=== PATIENT | male | born 1950 | race American Indian/Alaskan Native ===

== ENCOUNTER 2020-10-30 02:16 | Inpatient (IN) | payer MEDICARE ==
[2020-10-30] MEDS ORDERED: ASPIRIN 325 MG TAB PO ONE (02:30)
[2020-10-30 03:07] LABS: Basophils % (Auto) 0.7 % (0.0-1.8); Eosinophils # (Auto) 0.1 K/mm3 (0.0-0.4); Eosinophils % (Auto) 0.9 % (0.0-4.3); Hematocrit 38.5 % (35.5-45.6); Lymphocytes % (Auto) 13.5 % (13.4-35.0); Mean Corpuscular HGB Conc 34 % (32-34); Mean Corpuscular Volume 96 fl (84-94); Monocytes # (Auto) 0.7 K/mm3 (0.0-0.8); Monocytes % (Auto) 9.8 % (0.0-7.3); Platelet Count 174 K/mm3 (140-440); Red Blood Count 4.03 M/mm3 (3.65-5.03); Red Cell Distribution Width 14.3 % (13.2-15.2)
[2020-10-30 03:17] LABS: INR 1.02 (0.87-1.13)
[2020-10-30 03:28] LABS: Alanine Aminotransferase 49 units/L (7-56); Albumin 4.3 g/dL (3.9-5); BUN/Creatinine Ratio 19; Blood Urea Nitrogen 15 mg/dL (9-20); Calcium 9.5 mg/dL (8.4-10.2); Hemolysis Index 3
--- NOTE | 2020-10-30 03:40 | XRay Report ---
CHEST 1 VIEW INDICATION: Chest pain COMPARISON: None FINDINGS: SUPPORT DEVICES: None. HEART / MEDIASTINUM: No significant abnormality. LUNGS / PLEURA: Bronchovascular markings are prominent. No significant pulmonary or pleural abnormali ty. No pneumothorax. ADDITIONAL FINDINGS: IMPRESSION: 1. No acute cardiopulmonary disease Signer Name: Leandro Damico MD Signed: 10/30/2020 3:36 AM Workstation Name: [id number]
[2020-10-30 04:00] LABS: Chol/HDL Ratio 2.73 %; HDL Cholesterol 56 mg/dL (40-59); LDL Cholesterol,Direct 87 mg/dL (50-130)
[2020-10-30] MEDS ORDERED: MIDAZOLAM 2 MG/2 ML INJ IV PRN (05:29)
[2020-10-30] MEDS ORDERED: MINERAL OIL/PETROLATUM, WHITE OPHTH OINT 3.5 GM OU PRN (05:29)
[2020-10-30] MEDS ORDERED: LIP THERAPY VASELINE TP PRN (05:29)
[2020-10-30] MEDS ORDERED: fentaNYL 100 MCG/2 ML INJ IV PRN (05:29)
[2020-10-30] MEDS ORDERED: CLOPIDOGREL 300 MG TAB FEEDTUBE ONE (05:29)
[2020-10-30] MEDS ORDERED: SODIUM CHLORIDE 0.9% 500 ML IVPB IV PRN (05:29)
[2020-10-30] MEDS ORDERED: HEPARIN 10,000 UNITS/10 ML VIAL IV ONE (05:29)
[2020-10-30] MEDS ORDERED: HEPARIN 10,000 UNITS/10 ML VIAL IV PRN (05:29)
--- NOTE | 2020-10-30 05:32 | Emergency Department Report ---
ED General Adult HPI - General Chief complaint: Chest Pain Stated complaint: CHEST PAIN PUI?: No Time Seen by Provider: 10/30/20 05:01 Source: patient, RN notes reviewed Mode of arrival: Ambulatory Limitations: Physical Limitation - History of Present Illness Initial comments: The patient was evaluated in the emergency department for symptoms described in the history of present illness. He/she was evaluated in the context of the global COVID-19 pandemic, which necessitated consideration that the patient might be at risk for infection with the virus that causes COVID-19. Institutional protocols and algorithms that pertain to the evaluation of patients at risk for COVID-19 are in a state of rapid change based on informat ion released by regulatory bodies including the CDC and federal and state organizations. These policies and algorithms were followed during the patient's care in the emergency department. Please note that these policies, procedures and recommendations changed on a rapid basis. Primary CARE doctor: [facility] Patient is a 70-year-old gentleman, with a history of body mass index of 44 and hypertension. He also has a history of prostate cancer. He presents to the ER today with complaints of left-sided chest pain, that apparently radiated to both arms. He has been having intermittent shortness of breath. He has been taking nitroglycerin for the past week without improvement in symptoms. He reports that he saw his primary care doctor for chest pain about a week ago, and was prescribed nitroglycerin. To the best of his knowledge, he does not have a history of cardiac stents. He has not had a cardiac catheterization or stress test before that he is aware of. He typically sleeps on 2 pillows. While in the emergency room, he developed worsening shortness of breath, hypoxia, and crackles and rales. He denied Covid symptomatology. An initial EKG performed at 02: 38 showed nonspecific abnormalities, but was not morphologically consistent with a STEMI. The patient was found to have a mild troponin leak, and was thus brought back to room 2 emergently. While I was obtaining the patient's history and physical, he appeared to be markedly short of breath, and was hypoxic, with labored breathing, and he was coughing persistently. He states that this is new for him. ST morphology was suspicious on golf club head inspector and adjuster, and thus repeat EKG was obtained at 05: 0 8 AM. EKG morphology was consistent and suggestive of STEMI versus triple-vessel disease. EKG transmitted to our manager nc, Dr. Alena Pathak, who agreed with activation of the catheterization lab. Aspirin, heparin, Plavix ordered. Patient obese, with marked difficulty breathing, and hypoxic. Suspicious for acute congestive heart failure versus valvular compromise. Intubation was recommended to secure airway, given hypoxic respiratory failure, and anticipated inability to lay in a supine position. Patient provided verbal consent for intubation. The patient was thus intubated. Please see procedure note. Contacted our critical care physician, Dr. Potter, discussed patient's history, physical, EKG findings and clinical impression, he is in agreement with placement into the intensive care unit. Currently, the patient is sedated, receiving mechanical ventilation, awaiting transportation to the cardiac catheterization lab. -: Gradual, days(s) Location: chest Severity scale (0 -10): 9 Consistency: constant Improves with: none Worsens with: none - Related Data Allergies Allergy/AdvReac Type Severity Reaction Status Date / Time No Known Allergies Allergy Unverified 10/30/20 02:20 ED Review of Systems ROS: Stated complaint: CHEST PAIN Other details as noted in HPI Constitutional: malaise, weakness Eyes: denies: eye discharge ENT: congestion Respiratory: cough Cardiovascular: chest pain, edema (Patient states bilateral lower extremity edema is chronic) Gastrointestinal: denies: abdominal pain, nausea, vomiting Neurological: weakness Psychiatric: anxiety ED Past Medical Hx - Past Medical History Previous Medical History?: Yes Hx Hypertension: Yes Hx of Cancer: Yes (Prostate 2017, Lymphoma 2019) - Surgical History Past Surgical History?: Yes Additional Surgical History: 2000 cyst under arm ED Physical Exam - General Limitations: Physical Limitation General appearance: alert, anxious, in distress, obese - Head Head exam: Present: atraumatic, normocephalic - Eye Eye exam: Present: normal appearance, EOMI. Absent: nystagmus - ENT ENT exam: Present: normal exam, normal orophraynx, mucous membranes moist, normal external ear exam - Neck Neck exam: Present: normal inspection, full ROM. Absent: tenderness, m eningismus - Respiratory Respiratory exam: Present: respiratory distress, wheezes, rales, rhonchi, accessory muscle use - Cardiovascular Cardiovascular Exam: Present: normal rhythm, tachycardia, normal heart sounds. Absent: systolic murmur, diastolic murmur, rubs, gallop - GI/Abdominal GI/Abdominal exam: Present: soft. Absent: distended, tenderness, guarding, rebound, rigid, pulsatile mass - Rectal Rectal exam: Present: deferred - Extremities Exam Extremities exam: Present: normal inspection, full ROM, pedal edema (2+ edema in the bilateral lower extremities), other (2+ pulses noted in the bilateral upper and lower extremities. There is no palpable cord. negative Homans sign. Muscular compartments are soft. The pelvis is stable.) - Back Exam Back exam: Present: normal inspection. Absent: tenderness, CVA tenderness (R), CVA tenderness (L), muscle spasm, paraspinal tenderness, vertebral tenderness - Neurological Exam Neurological exam: Present: alert, other (No facial droop. Tongue midline. Extraocular movements intact bilaterally. Facial sensation intact to light touch in V1, V2, V3 distribution bilaterally. 5 and a 5 strength in 4 extremities. Sensation intact to light touch in 4 extremities.) - Psychiatric Psychiatric exam: Present: anxious - Skin Skin exam: Present: warm, dry, intact, normal color. Absent: rash ED Course Vital Signs 10/30/20 10/30/20 10/30/20 02:23 05:02 05:04 Temperature 98.3 F Pulse Rate 91 H 101 H Respiratory 20 16 Rate Blood Pressure Blood Pressure 132/87 [Right] O2 Sat by Pulse 97 84 Oximetry 10/30/20 10/30/20 10/30/20 05:06 05:08 05:10 Temperature Pulse Rate 106 H 100 H 102 H Respiratory 17 18 24 Rate Blood Pressure Blood Pressure [Right] O2 Sat by Pulse 90 90 90 Oximetry 10/30/20 10/30/20 10/30/20 05:12 05:14 05:16 Temperature Pulse Rate 103 H 105 H 108 H Respiratory 20 24 26 H Rate Blood Pressure Blood Pressure [Right] O2 Sat by Pulse 89 89 89 Oximetry 10/30/20 10/30/20 10/30/20 05:18 05:20 05:22 Temperature Pulse Rate 114 H 112 H 117 H Respiratory Rate Blood Pressure Blood Pressure [Right] O2 Sat by Pulse 91 90 91 Oximetry 10/30/20 10/30/20 10/30/20 05:24 05:26 05:28 Temperature Pulse Rate 107 H 110 H 115 H Respiratory Rate Blood Pressure 153/104 Blood Pressure [Right] O2 Sat by Pulse 81 L 86 93 Oximetry 10/30/20 10/30/2010/30/21 05:30 05:32 05:34 Temperature Pulse Rate 120 H 127 H 137 H Respiratory Rate Blood Pressure 153/104 153/104 153/104 Blood Pressure [Right] O2 Sat by Pulse 86 92 91 Oximetry 10/30/20 10/30/20 10/30/20 05:36 05:38 05:40 Temperature Pulse Rate 139 H 138 H 140 H Respiratory Rate Blood Pressure 153/104 153/104 153/104 Blood Pressure [Right] O2 Sat by Pulse 89 88 85 Oximetry 10/30/20 10/30/20 10/30/20 05:42 05:43 05:44 Temperature Pulse Rate 139 H 139 H 139 H Respiratory Rate Blood Pressure 153/104 126/95 126/95 Blood Pressure [Right] O2 Sat by Pulse 82 L 80 L 79 L Oximetry 10/30/20 10/30/20 10/30/20 05:46 05:48 05:50 Temperature Pulse Rate 138 H 136 H 140 H Respiratory Rate Blood Pressure 126/95 126/95 126/95 Blood Pressure [Right] O2 Sat by Pulse 79 L 78 L 83 L Oximetry 10/30/20 10/30/20 10/30/20 05:52 05:54 05:56 Temperature Pulse Rate 140 H 136 H 128 H Respiratory Rate Blood Pressure 126/95 126/95 126/95 Blood Pressure [Right] O2 Sat by Pulse 82 L 89 87 Oximetry 10/30/20 10/30/20 05:58 06:00 Temperature Pulse Rate 127 H 127 H Respiratory Rate Blood Pressure 135/94 135/94 Blood Pressure [Right] O2 Sat by Pulse 84 97 Oximetry - Reevaluation(s) Reevaluation #1: 10/30/20 06:02 Patient was desaturating on the ventilator. Patient was detached from the ventilator, and aggressively bagged. O2 sat came up to 95%. Suspect that patient has pneumonitis and CHF/fluid overload, which is likely contributing to hypoxia. This has resulted in a delay in the patient's transportation to the catheterization lab. - Intubation Time Out Performed: No (Emergency situation. Patient provided verbal consent.) Sedative: Etomidate Mg Given: 20 Paralytic: Rocuronium Mg Given: 100 Laryngoscope: fiberoptic video scope Size: 4 Assist Device Used: fiberoptic device ET Tube Size: 7.5 Tube Secured Location: lips Tube Placement Confirmation: visualized tube passing t, equal breath sounds bilat, no breath sounds over epi, confirmation by capnometr Intubation Complications: difficult intubation, hypoxia Additional Comments: Patient provided verbal consent for intubation. Intubation was emergently necessary given acute hypoxemic respiratory failure, and inability to lay flat for cardiac catheterization. Patient induced with etomidate, and paralyzed with rocuronium. Placed on nasal cannula at 15 L/min, and receives hbf-aievy-sqeo ventilation. In addition, qvu-ugfzi-bejt ventilation is applied with a Peep valve at 5 cm of water. Patient has persistent hypoxia, to the 70s/low 80s. An oral airway was then placed. We were able to lwx-elidx-nfiw ventilate this patient to an O2 sat of approximately 88%. He was then aggressively suctioned in the oropharynx, but copious secretions were noted in oropharynx, and a 7.5 endotracheal tube was i nserted using video laryngoscopy, direct visualization of the trachea, with 1 attempt. The tube was then secured ED Medical Decision Making - Lab Data Result diagrams: 10/30/20 05:15 10/30/20 02:48 Vital Signs 10/30/20 10/30/20 02:23 05:16 Temperature 98.3 F Pulse Rate 91 H 108 H Respiratory 20 26 H Rate Blood Pressure 132/87 [Right] O2 Sat by Pulse 97 90 Oximetry Lab Results 10/30/20 10/30/20 10/30/20 Range/Units 02:48 02:48 02:51 WBC 7.1 (4.5-11.0) K/mm3 RBC 4.03 (3.65-5.03) M/mm3 Hgb 13.0 (11.8-15.2) gm/dl Hct 38.5 (35.5-45.6) % MCV 96 H (84-94) fl MCH 32 (28-32) pg MCHC 34 (32-34) % RDW 14.3 (13.2-15.2) % Plt Count 174 (140-440) K/mm3 Lymph % (Auto) 13.5 (13.4-35.0) % [place] % (Auto) 9.8 H (0.0-7.3) % Eos % (Auto) 0.9 (0.0-4.3) % Baso % (Auto) 0.7 (0.0-1.8) % Lymph # (Auto) 1.0 L (1.2-5.4) K/mm3 [place] # (Auto) 0.7 (0.0-0.8) K/mm3 Eos # (Auto) 0.1 (0.0-0.4) K/mm3 Baso # (Auto) 0.0 (0.0-0.1) K/mm3 Seg Neutrophils % 75.1 H (40.0-70.0) % Seg Neutrophils # 5.3 (1.8-7.7) K/mm3 PT 13.3 (12.2-14.9) Sec. INR 1.02 (0.87-1.13) Sodium 139 (137-145) mmol/L Potassium 3.6 (3.6-5.0) mmol/L Chloride 101.2 (98-107) mmol/L Carbon Dioxide 25 (22-30) mmol/L Anion Gap 16 mmol/L BUN 15 (9-20) mg/dL Creatinine 0.8 (0.8-1.3) mg/dL Estimated GFR > 60 ml/min BUN/Creatinine Ratio 19 % Glucose 161 H (75-100) mg/dL Calcium 9.5 (8.4-10.2) mg/dL Magnesium (1.7-2.3) mg/dL Total Bilirubin 0.60 (0.1-1.2) mg/dL AST 49 H (5-40) units/L ALT 49 (7-56) units/L Alkaline Phosphatase 70 (35-129) units/L Total Creatine Kinase (55-170) units/L Troponin T 0.089 H (0.00-0.029) ng/mL Total Protein 7.0 (6.3-8.2) g/dL Albumin 4.3 (3.9-5) g/dL Albumin/Globulin Ratio 1.6 % Triglycerides 110 (2-149) mg/dL Cholesterol 153 (50-199) mg/dL LDL Cholesterol Direct 87 (50-130) mg/dL HDL Cholesterol 56 (40-59) mg/dL Cholesterol/HDL Ratio 2.73 % 10/30/20 Range/Units 02:51 WBC (4.5-11.0) K/mm3 RBC (3.65-5.03) M/mm3 Hgb (11.8-15.2) gm/dl Hct (35.5-45.6) % MCV (84-94) fl MCH (28-32) pg MCHC (32-34) % RDW (13.2-15.2) % Plt Count (140-440) K/mm3 Lymph % (Auto) (13.4-35.0) % [place] % (Auto) (0.0-7.3) % Eos % (Auto) (0.0-4.3) % Baso % (Auto) (0.0-1.8) % Lymph # (Auto) (1.2-5.4) K/mm3 [place] # (Auto) (0.0-0.8) K/mm3 Eos # (Auto) (0.0-0.4) K/mm3 Baso # (Auto) (0.0-0.1) K/mm3 Seg Neutrophils % (40.0-70.0) % Seg Neutrophils # (1.8-7.7) K/mm3 PT (12.2-14.9) Sec. INR (0.87-1.13) Sodium (137-145) mmol/L Potassium (3.6-5.0) mmol/L Chloride (98-107) mmol/L Carbon Dioxide (22-30) mmol/L Anion Gap mmol/L BUN (9-20) mg/dL Creatinine (0.8-1.3) mg/dL Estimated GFR ml/min BUN/Creatinine Ratio % Glucose (75-100) mg/dL Calcium (8.4-10.2) mg/dL Magnesium 1.90 (1.7-2.3) mg/dL Total Bilirubin (0.1-1.2) mg/dL AST (5-40) units/L ALT (7-56) units/L Alkaline Phosphatase (35-129) units/L Total Creatine Kinase 303 H (55-170) units/L Troponin T (0.00-0.029) ng/mL Total Protein (6.3-8.2) g/dL Albumin (3.9-5) g/dL Albumin/Globulin Ratio % Triglycerides (2-149) mg/dL Cholesterol (50-199) mg/dL LDL Cholesterol Direct (50-130) mg/dL HDL Cholesterol (40-59) mg/dL Cholesterol/HDL Ratio % - EKG Data -: EKG Interpreted by [place] EKG shows normal: sinus rhythm Rate: normal - EKG Data 10/30/20 05:47 EKG #1, interpreted at 02: 40 a.m. Sinus rhythm, 88 bpm. Borderline leftward axis deviation, borderline left anterior fascicular block, left ventricular hypertrophy, nonspecific ST depression, lateral leads, and inferior leads. This is an abnormal EKG, but it is not morphologically consistent with a STEMI. EKG #2, interpreted at 05: 0 9 AM Sinus rhythm, tachycardia. Rate 100 bpm. Left axis deviation. Left anterior fascicular block. Marked ST elevation in aVR, with diffuse ST depression in multiple leads. This EKG is consistent with a STEMI. It was transmitted to our manager nc who agreed to activate the cardiac catheterization lab. - Radiology Data Radiology results: report reviewed, image reviewed [address] [address] XRay Report Signed Patient: CARIN MERCADO MR#: [id number] : 1950 Acct:[id number] Age/Sex: 70 / M ADM Date: 10/30/20 Loc: ED Attending Dr: Ordering Physician: KEO BUCK MD Date of Service: 10/30/20 Procedure(s): XR chest 1V ap Accession Number(s): [id number] cc: ED MD CIELO Fluoro Time In Minutes: CHEST 1 VIEW INDICATION: Chest pain COMPARISON: None FINDINGS: SUPPORT DEVICES: None. HEART / MEDIASTINUM: No significant abnormality. LUNGS / PLEURA: Bronchovascular markings are prominent. No significant pulmonary or pleural abnormality. No pneumothorax. ADDITIONAL FINDINGS: IMPRESSION: 1. No acute cardiopulmonary dise ase Signer Name: Leandro Damico MD Signed: 10/30/2020 3:36 AM Workstation Name: [id number] Transcribed By: WG Dictated By: Leandro Damico MD Electronically Authenticated By: Leandro Damico MD Signed Date/Time: 10/30/[address] [address] XRay Report Signed Patient: CARIN MERCADO MR#: [id number] : 1950 Acct:[id number] Age/Sex: 70 / M ADM Date: 10/30/20 Loc: ED Attending Dr: Ordering Physician: LUCY MORGAN MD Date of Service: 10/30/20 Procedure(s): XR chest 1V ap Accession Number(s): [id number] cc: LUCY MORGAN MD Fluoro Time In Minutes: CHEST 1 VIEW INDICATION: ETT placement COMPARISON: Earlier the same day FINDINGS: SUPPORT DEVICES: Endotracheal tubes in good position. Nasogastric tube has tip below diaphragm HEART / MEDIASTINUM: No significant abnormality. LUNGS / PLEURA: Bronchovascular markings remain prominent. No pneumothorax. ADDITIONAL FINDINGS: IMPRESSION: 1. No interval changes compared to previous exam Signer Name: Leandro Damico MD Signed: 10/30/2020 6:25 AM Workstation Name: [id number] Transcribed By: WG Dictated By: Leandro Damico MD Electronically Authenticated By: Leandro Damico MD Signed Date/Time: 10/30/20624 DD/ 3 Critical Care Time: Yes Critical care time in (mins) excluding proc time.: 74 Critical care attestation.: If time is entered above; I have spent that time in minutes in the direct care of this critically ill patient, excluding procedure time. ED Disposition Clinical Impression: STEMI (ST elevation myocardial infarction), Acute respiratory failure, BMI 40.0-44.9, adult Disposition: DC/TX-70 ANOTHER TYPE HLTHCARE Is pt being admited?: Yes Does the pt Need Aspirin: No Condition: Critical Referrals: PRIMARY CARE, [Primary Care Provider] - 3-5 Days Heart Score - HEART Score History: Moderately suspicious EKG: Significant ST-depression Age: > 65 Risk factors: 1-2 risk factors Troponin: 1-3x normal limit HEART Score: 7 - EKG Read Time Time EKG Completed: 05:08 EKG Read Time: 05:09 - Critical Actions Critical Actions: >7 pts:50-65% risk of adverse cardiac event. Early invasive measures
[2020-10-30 05:38] LABS: Hematocrit 40.8 % (35.5-45.6); Hemoglobin 13.7 gm/dl (11.8-15.2)
[2020-10-30 05:41] LABS: INR 1.03 (0.87-1.13)
[2020-10-30 05:42] LABS: Partial Thromboplastin Time 26.7 Sec. (24.2-36.6)
[2020-10-30] MEDS ORDERED: ETOMIDATE 20 MG/10 ML INJ IV ONE (05:42)
[2020-10-30] MEDS ORDERED: ROCURONIUM 50 MG/5 ML INJ IV ONE (05:42)
[2020-10-30] MEDS ORDERED: MIDAZOLAM 2 MG/2 ML INJ ONE (05:46)
[2020-10-30] MEDS ORDERED: HEPARIN/NS 5000 UNIT/500ML 1,000 ML IR ONE (05:46)
[2020-10-30] MEDS ORDERED: fentaNYL 100 MCG/2 ML INJ ONE (05:46)
[2020-10-30] MEDS ORDERED: NITROGLYCERIN SYRINGE 0 ML ONE (05:47)
[2020-10-30] MEDS ORDERED: LIDOCAINE (2%) 20 MG/1 ML VIAL 20 ML MDV INFILTRATI ONE (05:47)
[2020-10-30] MEDS ORDERED: VERAPAMIL 5 MG/2 ML INJ ONE (05:47)
[2020-10-30] MEDS ORDERED: ATROPINE 0.1% (1 MG/10 ML) CARDIAC SYRINGE ONE (05:55)
[2020-10-30] MEDS ORDERED: EPINEPHrine 1 MG/10 ML SYRINGE ONE (05:55)
[2020-10-30] MEDS ORDERED: LIDOCAINE PF 100 MG/5 ML (CARDIAC SYRINGE) IV ONE (05:55)
[2020-10-30] MEDS ORDERED: PHENYLEPHRINE/NS 1,000 MCG/10 ML SYRINGE (OR USE) IV ONE (05:55)
[2020-10-30] MEDS ORDERED: HEPARIN/ 0.45% NACL DRIP 25,000 UNIT/500 ML BAG IV SCH (06:00)
[2020-10-30] MEDS ORDERED: MIDAZOLAM 100 MG in SODIUM CHLORIDE 0.9% 80 ML IV SCH (06:00)
[2020-10-30] MEDS ORDERED: fentaNYL DRIP Premix 2,000 MCG/100 ML BAG IV SCH (06:00)
[2020-10-30] MEDS ORDERED: SODIUM CHLORIDE 0.9% 1000 ML 1,000 ML ONE (06:08)
[2020-10-30] MEDS ORDERED: CLOPIDOGREL 300 MG TAB ONE (06:13)
[2020-10-30] MEDS ORDERED: ASPIRIN 325 MG TAB ONE (06:13)
[2020-10-30] MEDS ORDERED: FUROSEMIDE 40 MG/4 ML INJ ONE ×3 (06:26→07:29)
--- NOTE | 2020-10-30 06:29 | XRay Report ---
CHEST 1 VIEW INDICATION: ETT placement COMPARISON: Earlier the same day FINDINGS: SUPPORT DEVICES: Endotracheal tubes in good position. Nasogastric tube has tip below diaphragm HEART / MEDIASTINUM: No significant abnormality. LUNGS / PLEURA: Bronchovascular markings remain prominent. No pneumothorax. ADDITIONAL FINDINGS: IMPRESSION: 1. No interval changes compared to previous exam Signer Name: Leandro Damico MD Signed: 10/30/2020 6:25 AM Workstation Name: [id number]
[2020-10-30] MEDS: HEPARIN 10,000 UNITS/10 ML VIAL ONE ×2 (06:34→06:38)
[2020-10-30] MEDS ORDERED: HEPARIN/NS 5000 UNIT/500ML 500 ML IR ONE (06:36)
[2020-10-30 06:45] VITALS: BP 135/94
[2020-10-30] MEDS ORDERED: LORazepam 2 MG/ML VIAL ONE (07:16)
--- NOTE | 2020-10-30 07:49 | Cardiac Catherization Report ---
DATE OF PROCEDURE: 10/30/2020 CARDIAC CATHETERIZATION INDICATIONS: The patient is a 70-year-old gentleman who presented to the emergency room earlier this morning with chest pain and shortness of breath. Per Dr. Enciso, the ER physician, the patient has been having chest pain for about a week and take nitroglycerin. Denies any previous known cardiac history. Sleeps on 2 pillows, has been having shortness of breath. Initial EKG at 2:38 a.m. showed nonspecific abnormalities. Mildly abnormal troponin. The patient developed worsening shortness of breath, hypoxemia. Repeat EKG reveals diffuse ST elevation. powerhouse laborer is initiated. There is some delay in bringing him to the clinical lab specialist as the patient developed hypoxemia and thus was needed to be intubated. Apparently he was not an easy intubation. Following intubation, the patient was emergently brought to the clinical lab specialist DESCRIPTION OF PROCEDURE: The patient was brought to catheterization lab in emergent fashion, prepped and draped in sterile fashion. 8 mL of 2% lidocaine used to anesthetize the right groin. The patient is tachycardic and hypoxic, intubated. Respiratory and nursing at bedside. We placed an arterial and right femoral line via modified Seldinger technique, sheaths were placed. Next, a JR4 catheter was used to cross the aortic valve under fluoroscopic guidance. Left ventriculography was performed in 30 RUSSELL and 30 SIERRA LEONEAN projections via hand injection, catheter flushed. Manual pullback performed with continuous pressure monitoring. Catheter was used to engage the right coronary. No dampening or ventricularization. Next, EBU 3.75 guide used to engage the left main, no dampening. Cineangiography performed in all projections. DATA: The patient's sinus tachy, heart rate of 110-115, LV pressure of 130, LVEDP of 52. Aortic pressure is 150/80. Left ventriculography reveals severe global left anterior apical hypokinesis, estimated ejection fraction of 20 25%. CORONARY ANATOMY: It is a right dominant system. Right coronary with moderate luminal irregularities, but MARKY 3 flow throughout. Left main with a severe 95% distal stenosis with heavy calcification involving the ostium of the left circumflex and LAD. At this point, there is MARKY 3 flow throughout. Of note, the patient has been given IV heparin, aspirin, Plavix and started on a heparin drip. At this point, I stopped and discussed with cardiac surgery at [facility] regarding different options. At this point, we both agreed to place intraaortic balloon pump and transfer the patient emergently for emergent bypass surgery. At this point, intraaortic balloon pump was placed under fluoroscopic guidance, right venous sheath is already placed. We watched the patient for some 60 minutes critical care time post-catheterization. IV Lasix was given. The patient has a Callahan in, at least 500 mL of urine is out in the last 30 minutes or so. Intraaortic balloon pump is at 1:1 and functioning normally. CONCLUSIONS: 1. A critically ill patient with 99% distal left main involving the ostium of the LAD and left circumflex, currently with MARKY 3 flow. 2. Severe LV dysfunction, estimated ejection fraction of 20 to 25% with markedly elevated LVEDP of greater than 50. 3. No evidence of aortic stenosis. 4. Sinus tachycardia is present. 5. Successful intraaortic balloon pump placement. Continue IV Lasix. Continue IV heparin. The patient had already been loaded with aspirin. The patient will be transferred emergently to [facility] for bypass surgery with Dr. Florentino Tiwari. I spent a long time discussing with the patient's daughter in the waiting room regarding our findings, hospital course and plan of care. She expresses understanding. TID: [id number] RECEIPT: [id number] ANTOLIN/ARACELI
--- NOTE | 2020-10-30 08:02 | Consultation ---
DATE OF CONSULTATION: 10/30/2020 REFERRING PHYSICIAN: Zaria. REASON FOR CONSULTATION: Advice and opinion regarding ST elevation AR. HISTORY OF PRESENT ILLNESS: The patient is a 70-year-old gentleman with a known history of hypertension, prostate cancer, elevated BMI, presents to the hospital with chest pain and shortness of breath. He has been having these symptoms for some time, at least a week or two as primary care physician is at [facility]. He denies any prior cardiac catheterization or history. No known history of tobacco use or alcohol abuse. Daughter is here with him. ALLERGIES: No known drug, food or environmental allergies. INPATIENT AND OUTPATIENT MEDICATIONS: Reviewed. The patient initially presented with chest pain, shortness of breath, found to have nonspecific abnormal EKG. Several hours later, the patient developed acute shortness of breath and chest pain, was found to have diffuse ST elevation and STEMI protocol was initiated. At this point, the patient was loaded with heparin, aspirin and Plavix. A STEMI protocol initiated. The patient will be taken to the pharmaceutical laboratory technician. PAST MEDICAL HISTORY: As aforementioned. REVIEW OF SYSTEMS: As per HPI. No evidence of abdominal pain, nausea, vomiting, weakness, cough. NEUROLOGIC: No acute stroke symptoms. Chest pain and shortness of breath as aforementioned. Has significant bilateral lower extremity edema, which is chronic. Past medical history is as aforementioned. EKG is aforementioned. ASSESSMENT: In summary, the patient is a 70-year-old gentleman who presents with acute diffuse ST elevation, intubated and sedated. STEMI protocol initiated. IV heparin, aspirin and Plavix given. Further plans contingent on these results. Laboratory data is reviewed and essentially unremarkable thus far. TID: [id number] RECEIPT: [id number] ANTOLIN/NANCY
--- NOTE | 2020-10-30 08:28 | Event Note ---
Full consultation cath report dictated. Discussed with and daughter.
[2020-10-30] MEDS ORDERED: FAMOTIDINE 20 MG/2 ML INJ IV SCH (10:00)
[2020-10-30] MEDS ORDERED: SENNOSIDES/DOCUSATE SODIUM 8.6/50 MG TAB FEEDTUBE SCH (10:00)
--- NOTE | 2020-10-31 10:13 | Electrocardiograph Report ---
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
--- NOTE | 2020-10-31 10:13 | Electrocardiograph Report ---
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
== END 2020-10-30 07:30 | disposition other institution (70) | DRG 270 ==
LOC: ED 02:16 → CC1 07:28 → ED 07:47
PROVIDERS: ADMIT Internal Medicine; ATTEND Internal Medicine
PROC: 4A023N7 Measurement of Cardiac Sampling and Pressure, Left Heart, Percutaneous Approach (ICD-10-PCS; principal; 2020-10-30)
PROC: 5A02210 Assistance with Cardiac Output using Balloon Pump, Continuous (ICD-10-PCS; 2020-10-30)
PROC: B2151ZZ Fluoroscopy of Left Heart using Low Osmolar Contrast (ICD-10-PCS; 2020-10-30)
DX: I21.3 ST elevation (STEMI) myocardial infarction of unspecified site (principal); J96.00 Acute respiratory failure, unspecified whether with hypoxia or hypercapnia; Z68.41 Body mass index [BMI] 40.0-44.9, adult; I10 Essential (primary) hypertension; Z98.890 Other specified postprocedural states
CPT/HCPCS: 31500; 33967; 36415; 71045; 80053; 80061; 82550; 83735; 83880; 84484; 85014; 85018; 85025; 85049; 85347; 85610; 85730; 93005; 93458; 94002; 96374; 96375; G0378; C1887; C1894; J0171; J0461; J1644; J1940; J2001; J2060; J2250; J2370; J3010; J7030; Q9967